=== PATIENT | female | born 1970 | race Caucasian/White ===

== ENCOUNTER 2016-12-09 14:40 | Emergency (ER) | payer BC ==
[2013-03-20 07:23] VITALS: BMI 24.6
[~2016-12-09 14:40] MED LIST: MOTRIN600 MG PO; PERCOCET 10/3251 TA1 PO
[2016-12-09 17:14] LABS: BASOPHILS 0.1 % (0.0-2.0); HEMATOCRIT 42.3 % (36.0-48.0); HEMOGLOBIN 14.7 g/dL (12-16); IMMATURE GRANULOCYTES 0.2 % (0-5); LYMPHOCYTES 19.2 % (15-50); MCH 35.3 pg (26.0-34.0); MCHC 34.8 g/dL (31.0-37.0); MCV 101.4 fL (80.0-100.0); MONOCYTES 5.9 % (2-11); NEUTROPHILS 73.6 % (40-80); PLATELET COUNT 204 10x3/uL (130-400); RBC 4.17 10x6/uL (4.00-5.40); RDW 12.2 % (11.5-14.5); WBC 10.2 10x3/uL (4.8-10.8)
[2016-12-09 17:29] LABS: ALBUMIN 3.8 g/dL (3.4-5.0); ALKALINE PHOSPHATASE 67 U/L (46-116); ALT (SGPT) 51 U/L (10-68); CALC OSMOLALITY 276 mosm/kg (275-300); CALCIUM 8.9 mg/dL (8.5-10.1); CARBON DIOXIDE 26.4 mmol/L (21.0-32.0); CHLORIDE - SERUM 103 mmol/L (98-107); CREATININE - SERUM 0.6 mg/dL (0.6-1.3); GLUCOSE 96 mg/dL (74-106); POTASSIUM - SERUM 3.9 mmol/L (3.5-5.1); PROTEIN - SERUM 7.1 g/dL (6.4-8.2); SODIUM 139 mmol/L (136-145); UREA NITROGEN 9 mg/dL (7-18); eGFR NON AFRICAN AMERICAN > 90 mL/min (90-120)
[2016-12-09 17:40] LABS: CKMB 0.3 U/L (0.0-3.6); CREATINE KINASE 58 UL (21-215); TROPONIN-I < 0.017 ng/mL (0.000-0.060)
== END 2016-12-09 18:15 | disposition home or self-care (01) ==
LOC: D.ER 14:40
PROVIDERS: Family Medicine
DX: M94.0 Chondrocostal junction syndrome [Tietze] (principal)

== ENCOUNTER 2018-06-24 05:30 | Day surgery (SDC) | payer BC ==
[2018-06-21 12:18] LABS: BASOPHILS 0.1 % (0-2); EOSINOPHILS 0.6 % (0-7); HEMATOCRIT 42.3 % (36.0-48.0); HEMOGLOBIN 15.2 g/dL (12-16); IMMATURE GRANULOCYTES 0.1 % (0-5); LYMPHOCYTES 21.9 % (15-50); MCH 34.6 pg (26.0-34.0); MCHC 35.9 g/dL (31.0-37.0); MCV 96.4 fL (80.0-100.0); MEAN PLATELET VOLUME 10.1 fL (7.4-10.4); MONOCYTES 7.1 % (2-11); NEUTROPHILS 70.2 % (40-80); PLATELET COUNT 221 10x3/uL (130-400); RBC 4.39 10x6/uL (4.00-5.40); RDW 12.2 % (11.5-14.5); WBC 8.4 10x3/uL (4.8-10.8)
[~2018-06-24] VITALS: Ht 157.5 cm; Wt 59.0 kg
--- NOTE | ~2018-06-24 | OP ---
PATIENT NAME: DU TURCIOS MEDICAL RECORD: [id number] :70 LOCATION:D.FORMERLY [facility] ADMISSION DATE: SURGEON: ANALI FLETCHER MD DATE OF OPERATION: 06/24/2018 PREOPERATIVE DIAGNOSIS: Pelvic pain. POSTOPERATIVE DIAGNOSES: 1. Pelvic pain. 2. Mild pelvic adhesions. PROCEDURES: 1. Diagnostic laparoscopy. 2. Bilateral salpingo-oophorectomy. SURGEON: Anali Fletcher MD ANESTHESIOLOGIST: Dr. Gregory ANESTHETIC: General. FINDINGS: Right ovary is unremarkable along with the right tube. The uterus is surgically absent. There is a peritoneal inclusion cyst identified on the right sidewall. Left ovary is unremarkable with the exception of adhesions from the bowel to the ovary and the ovary to the sidewall. SPECIMENS REMOVED: Ovaries and tubes bilaterally. SPECIMEN DISPOSITION: Pathology. ESTIMATED BLOOD LOSS: Minimal FLUIDS: 1500 cc of lactated Ringer's. URINE OUTPUT: Minimal. COMPLICATIONS: None. DRAINS: None. INDICATIONS: The patient is a 48-year-old female with pelvic pain. After counseling, the patient has a strong desire for removal due to pain as well as concerns of a cancer in the coming years. The patient was consented for diagnostic laparoscopy and bilateral salpingo-oophorectomy. DESCRIPTION OF PROCEDURE: After informed consent was assured, the patient was taken to the operating room where anesthetic was obtained. Masters catheter was started, and the patient was placed supine on the table and prepped and draped. Incision was made at the umbilicus to accommodate a 5-mm trocar, which was inserted and pneumoperitoneum developed. With the patient in Trendelenburg position, accessory ports were placed in the right lower quadrant and just right of the midline with a 10-12. Through the 10-12 port, a grasper was inserted. The right tube and ovary were elevated and using a coagulation cutter, the infundibulopelvic ligaments compressed, coagulated, and . The dissection was carried out underneath the ovary and tube and then it was placed OPERATIVE REPORT [id number] DU TURCIOS in the cul-de-sac. This was repeated on the contralateral side after taking down the adhesions of the ovary to the bowel and the sidewall with the coagulation cutting device. After the ovary was mobilized, it was elevated with a grasper and the infundibulopelvic ligament was compressed, coagulated, and . The ovary and its tube was now removed from its attachments to the infundibulopelvic ligament and sidewall. An Endobag was now placed in a 10-12 port and both ovaries placed and removed. The pneumoperitoneum was released for 2 minutes and then reestablished. Some bleeding was noted from the right surgical site and it was grasped with a [place] grasper from the midline, elevated and then desiccated with a coagulation device. The accessory ports were removed under direct visualization as the pneumoperitoneum was being released. The primary port was removed after removal of maximum pneumoperitoneum. The skin was reapproximated with subcuticular stitch. A sterile dressing was applied. Sponge, lap, and needle counts were reported correct times 2 at the close of this procedure. The patient will return to same day surgery and after discharge criteria met will be discharged home. TRANSINT:[id number] Voice Confirmation ID: [id number] DOCUMENT ID: [id number] ANALI FLETCHER MD at 1126 CC: [id number] DICTATION DATE: 06/24/18821 INTEGRATION DIRECTOR: 06/24/1852 [facility] 06/24/18 [facility] [address] [place] [address]
[2018-06-24] MEDS ORDERED: ESTRACE1 MG PO (05:51)
[2018-06-24] MEDS ORDERED: ESTRACE 0.0142.5 GM VG (05:52)
[2018-06-24] MEDS ORDERED: HYDROCODON-ACE1 EAC7 PO (05:53)
[2018-06-24 06:07] VITALS: BP 115/74; Ht 157.5 cm; Wt 59.0 kg
== END 2018-06-24 10:04 | disposition home or self-care (01) ==
LOC: D.OPS 05:30 → D.PAN 07:30 → D.OPS 07:30
PROVIDERS: Obstetrics & Gynecology
DX: R10.2 Pelvic and perineal pain (principal); N73.6 Female pelvic peritoneal adhesions (postinfective); L72.0 Epidermal cyst; N94.89 Other specified conditions associated with female genital organs and menstrual cycle; Z01.812 Encounter for preprocedural laboratory examination

== ENCOUNTER → 2018-07-12 16:40 | Outpatient (CLI) | payer BC ==
[2018-06-24 06:07] VITALS: BMI 23.8
[~2018-07-12 16:40] MED LIST changes: +ESTRACE 0.0142.5 GM VG; +ESTRACE1 MG PO; +HYDROCODON-ACE1 EAC7 PO
== END | disposition home or self-care (01) ==
LOC: D.MAMMO 11:30
DX: Z12.31 Encounter for screening mammogram for malignant neoplasm of breast (principal)

== ENCOUNTER → 2019-05-15 12:29 | Outpatient (CLI) | payer BC ==
[2018-06-24 06:07] VITALS: BMI 23.8
[~2019-05-15 12:29] MED LIST changes: +AMITIZA8 MCG PO; +COLACE100 MG PO; +HYDROCODON-ACE1 EA10 PO
== END | disposition home or self-care (01) ==
LOC: D.CT 12:29
PROVIDERS: ATTEND Surgery
DX: R10.32 Left lower quadrant pain (principal); K59.00 Constipation, unspecified

== ENCOUNTER 2019-05-26 15:01 | Observation (INO) | payer BC ==
[~2019-05-26] VITALS: Ht 157.5 cm; Wt 59.0 kg
[~2019-05-26 15:01] MED LIST changes: -AMITIZA8 MCG PO; -COLACE100 MG PO; -HYDROCODON-ACE1 EA10 PO
[2019-05-26 16:05] LABS: BASOPHILS 0.2 % (0-2); EOSINOPHILS 0.4 % (0-7); HEMATOCRIT 43.4 % (36.0-48.0); HEMOGLOBIN 15.9 g/dL (12-16); IMMATURE GRANULOCYTES 0.2 % (0-5); LYMPHOCYTES 23.6 % (15-50); MCH 34.7 pg (26.0-34.0); MCHC 36.6 g/dL (31.0-37.0); MCV 94.8 fL (80.0-100.0); MEAN PLATELET VOLUME 10.5 fL (7.4-10.4); MONOCYTES 4.5 % (2-11); NEUTROPHILS 71.1 % (40-80); PLATELET COUNT 198 10x3/uL (130-400); RBC 4.58 10x6/uL (4.00-5.40); RDW 12.4 % (11.5-14.5); WBC 9.5 10x3/uL (4.8-10.8)
[2019-05-26 16:08] LABS: ALKALINE PHOSPHATASE 59 U/L (46-116); ALT (SGPT) 32 U/L (10-68); BILIRUBIN - TOTAL 0.23 mg/dL (0.2-1.3); CALC OSMOLALITY 273 mosm/kg (275-300); CALCIUM 9.4 mg/dL (8.5-10.1); CARBON DIOXIDE 27.2 mmol/L (21.0-32.0); CHLORIDE - SERUM 103 mmol/L (98-107); CREATININE - SERUM 0.6 mg/dL (0.6-1.3); GLUCOSE 95 mg/dL (74-106); POTASSIUM - SERUM 4.2 mmol/L (3.5-5.1); PROTEIN - SERUM 7.7 g/dL (6.4-8.2); SODIUM 137 mmol/L (136-145); UREA NITROGEN 12 mg/dL (7-18); eGFR NON AFRICAN AMERICAN > 90 mL/min (90-120)
[2019-05-26 17:23] LABS: APPEARANCE CLEAR (CLEAR); BILIRUBIN NEGATIVE (NEGATIVE); COLOR YELLOW (YELLOW); GLUCOSE NEGATIVE (NEGATIVE); KETONE MODERATE mg/dL (NEGATIVE); NITRITE NEGATIVE (NEGATIVE); PROTEIN NEGATIVE (NEGATIVE); UROBILINOGEN NORMAL (NORMAL)
--- NOTE | 2019-05-26 19:20 | NUR ---
REC'D PER W/C FROM ER DEPT TO ROOM 2222 A 49 Y/O W/FE PER SERVICES DR. FISHMAN WITH DX CHOLELITHIASIS. IV PATENT LEFT HAND OF NS AT 100CC'S/HR. SITE CLEAR. ASSESSMENT PER ADMIT PACKET.
[2019-05-26 21:17] VITALS: BP 114/69
[2019-05-26 22:07] VITALS: BP 114/69; BMI 23.8
--- NOTE | 2019-05-26 22:45 | NUR ---
C/O PAIN RT UPPER QUAD OF ABDOMEN. RATES PAIN LEVEL 5-6. MORPHINE 4MG IVPS GIVEN FOR PAIN CONTROL. UP AD SHABBIR TO BR VOIDS WELL.
[2019-05-27 00:17] VITALS: BP 116/70
--- NOTE | 2019-05-27 00:24 | NUR ---
EYES CLOSED RESPIRATIONS WITH EASE AND UNLABORED. PT NPO AT THIS TIME FOR XRAY PROCEDURE IN AM.
[2019-05-27] MEDS ORDERED: AMITIZA8 MCG PO (00:59)
--- NOTE | 2019-05-27 02:00 | NUR ---
REMAINS NPO FOR ULTRA SOUND PROCEDURE AND POSSIBLE SURGERY.
[2019-05-27 04:42] VITALS: BP 108/60
--- NOTE | 2019-05-27 05:34 | NUR ---
EYES CLOSED RESPIRATIONS WITH EASE AND UNLABORED.
--- NOTE | 2019-05-27 08:47 | HP ---
PATIENT: DU TURCIOS MEDICAL RECORD: [id number] ACCOUNT: [id number] LOCATION:D.[facility] : 70 ADMISSION DATE: 05/26/19 PCP: NATALIO FISHMAN HISTORY AND PHYSICAL EXAMINATION DATE OF ADMISSION: 05/26/2019 CHIEF COMPLAINT: Right upper quadrant abdominal pain. HISTORY OF PRESENT ILLNESS: This is a 49-year-old female followed by Dr. Fishman. She has been having abdominal pain for over a month. She has right upper quadrant abdominal pain after she eats, so she has really not eaten much, tried to control her pain by not eating much and then she has abdominal bloating and discomfort and the rest of her abdomen. It has gotten worse over the last month. She was referred to general surgery and was seen earlier this month. Their notes say they were going arrange to get with GI for her colonoscopy as she had one in [address]. [address] CT of the abdomen was ordered and done on 05/15/2019, it showed gallstones and diverticulosis. The patient states she has not heard back with any further recommendations on what to do with that. Pain has been intermittent now, it is getting worse. PAST MEDICAL AND SURGICAL HISTORY: She has had chronic constipation. She had abdominal pain back in 1998 before living in [place]. She had a workup then including a colonoscopy. She had not had any abdominal surgeries prior to that, but she did have a surgery then and was found to have adhesions. These were taken down. Since then, she has had a total abdominal hysterectomy and last year, had a bilateral salpingo-oophorectomy and also had some more lysis of adhesions at that time. ALLERGIES: REPORTED TO ZITHROMAX, CHANTIX, DIFLUCAN, AND ANYTHING WITH COCONUT IN IT. HOME MEDICATIONS: Include Estradiol 1 mg once a day, Amitiza 8 mcg once a day. HABITS: She still smokes some cigarettes. She is a social drinker. Denies any drugs. 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 FAMILY HISTORY: She has no idea about her father's history. Mother, she of reportedly old age. She had dementia and hypertension. The patient's sister has had her gallbladder removed. REVIEW OF SYSTEMS: GENERAL: She states she has lost some weight over the last several months because she is not eating trying to control her pain. HEENT: No particular sinus or allergy problems. RESPIRATORY: She has had some sort of reactive airway disease in the past. CARDIAC: No history of heart trouble. GASTROINTESTINAL: She has had the adhesions years ago and has chronic constipation and the abdominal pain as mentioned above. GENITOURINARY: No significant problems there. She has had a hysterectomy and now bilateral salpingo-oophorectomy. MUSCULOSKELETAL: She has had some chronic pains in her neck and back. HISTORY AND PHYSICAL [id number] DU TURCIOS NEUROLOGIC: No migraine. She has had a few migraine headaches in the past. Denies any seizures. PSYCHIATRIC: No depression or melancholia. PHYSICAL EXAMINATION: VITAL SIGNS: Temperature 97.5, pulse 77, respirations 20, blood pressure 162/70. GENERAL: She is awake and alert. She does not appear in acute distress. Her pain has come and gone. HEENT: Grossly within normal limits. NECK: Supple. No JVD or bruit. HEART: Regular rate and rhythm without murmur. LUNGS: Clear. ABDOMEN: With right upper quadrant tenderness, no guarding, no rebound, no mass at this time. Bowel sounds are active. EXTREMITIES: No edema. NEUROLOGIC: Unremarkable. LABORATORY DATA: Urinalysis is yellow, clear with moderate ketones, otherwise normal. CBC with a white count of 9500, hemoglobin 15.9, hematocrit 43.4. Basic metabolic panel is all normal. Liver functions are normal. Lipase is normal. The patient had a CT of the abdomen and pelvis on 05/15/2019, showing gallstones in the dependent area of the gallbladder. Also, some diverticulosis was noted, otherwise fairly unremarkable. ASSESSMENT: Worsening right upper quadrant abdominal pain, especially after eating. PLAN: We will admit, give IV fluids, pain control. Schedule ultrasound of the gallbladder for her the morning. She will be made n.p.o. after midnight tonight. Pepcid for stress ulcer control. SCDs are ordered. General surgery consult. Other tests or procedures as warranted. TRANSINT:[id number] Voice Confirmation ID: [id number] DOCUMENT ID: [id number] PIERRE KNAPP MD at 0847 CC: [id number] DICTATION DATE: 05/27/1930 FURNACE KEEPER: 05/27/19 0136 ADM IN [facility] [address] [id number]
[2019-05-27 09:08] VITALS: BP 115/66
[2019-05-27 12:17] VITALS: BP 130/82
[2019-05-27 14:45] VITALS: BMI 23.8
[2019-05-27 16:45] VITALS: BP 121/68
[2019-05-27 17:39] VITALS: Ht 157.5 cm; Wt 59.0 kg
[2019-05-27 20:00] VITALS: BP 105/67
--- NOTE | 2019-05-27 20:00 | NUR ---
ASSESSMENT PER FLOWSHEET. IV PATENT LEFT HAND OF NS AT 150CC'S/HR. SITE CLEAR. DISCUSSED WITH PATIENT ABOUT NPO STATUS AFTER MIDNIGHT.
--- NOTE | 2019-05-27 22:13 | NUR ---
AWAKE WATCHING TV DENIES NEEDS.
--- NOTE | 2019-05-28 00:02 | NUR ---
NPO FOR SURGERY IN AM RESTING AT THIS TIME.
[2019-05-28 04:00] VITALS: BP 142/77
--- NOTE | 2019-05-28 05:30 | NUR ---
[facility].
[2019-05-28 06:51] LABS: BASOPHILS 0.3 % (0-2); EOSINOPHILS 1.4 % (0-7); HEMATOCRIT 38.8 % (36.0-48.0); HEMOGLOBIN 13.6 g/dL (12-16); IMMATURE GRANULOCYTES 0.2 % (0-5); LYMPHOCYTES 28.4 % (15-50); MCH 34.1 pg (26.0-34.0); MCHC 35.1 g/dL (31.0-37.0); MEAN PLATELET VOLUME 10.8 fL (7.4-10.4); MONOCYTES 5.8 % (2-11); NEUTROPHILS 63.9 % (40-80); PLATELET COUNT 162 10x3/uL (130-400); RBC 3.99 10x6/uL (4.00-5.40); RDW 12.5 % (11.5-14.5)
--- NOTE | 2019-05-28 06:56 | NUR ---
PRE OP MEDS GIVEN SEE MAR
[2019-05-28 07:12] LABS: MCV 97.2 fL (80.0-100.0); WBC 5.7 10x3/uL (4.8-10.8)
[2019-05-28 07:33] LABS: ALBUMIN 3.1 g/dL (3.4-5.0); ALKALINE PHOSPHATASE 46 U/L (46-116); ALT (SGPT) 33 U/L (10-68); BILIRUBIN - TOTAL 0.28 mg/dL (0.2-1.3); CALC OSMOLALITY 273 mosm/kg (275-300); CALCIUM 8.3 mg/dL (8.5-10.1); CARBON DIOXIDE 22.7 mmol/L (21.0-32.0); CHLORIDE - SERUM 107 mmol/L (98-107); CREATININE - SERUM 0.5 mg/dL (0.6-1.3); GLUCOSE 89 mg/dL (74-106); POTASSIUM - SERUM 3.9 mmol/L (3.5-5.1); PROTEIN - SERUM 6.2 g/dL (6.4-8.2); SODIUM 139 mmol/L (136-145); eGFR NON AFRICAN AMERICAN > 90 mL/min (90-120)
[2019-05-28 07:37] LABS: UREA NITROGEN 4 mg/dL (7-18)
--- NOTE | 2019-05-28 07:47 | NUR ---
PT TO OR AT THIS TIME.
--- NOTE | 2019-05-28 10:35 | OP ---
PATIENT NAME: DU TURCIOS MEDICAL RECORD: [id number] :70 LOCATION:D[facility] ADMISSION DATE:05/26/19 SURGEON: FABIO CERON MD DATE OF OPERATION: 05/28/2019 PREOPERATIVE DIAGNOSES: 1. Ultrasound evidence of gallstones. 2. Ultrasound evidence of fatty liver disease. POSTOPERATIVE DIAGNOSES: 1. Ultrasound evidence of gallstones. 2. Ultrasound evidence of fatty liver disease with hepatomegaly. PROCEDURES: 1. Laparoscopic cholecystectomy. 2. Intraoperative cholangiography without immediate surgeon interpretation. 3. A 14-gauge core needle liver biopsy. SURGEON: Fabio Ceron MD DIE BAKER: None. BLOOD LOSS: Minimal. ANESTHESIA: General. COMPLICATIONS: None. The risks, possible complications, and alternatives to the procedure were explained to the patient. She elects to proceed. The discussion specifically included, but was not limited to, bleeding requiring emergency reoperation, infection, intestinal injury, common bile duct injury. OPERATIVE COURSE: The patient was conveyed to the operating room electively on 05/28/2019. General anesthesia was induced by the anesthesia staff. The abdomen was sterilely prepped and draped. A small skin andrés was accomplished in the left upper quadrant. Veress needle was inserted through the skin andrés into the peritoneal cavity. CO2 insufflation was begun. Once a sufficient pneumoperitoneum had been achieved, a 5-mm trocar was inserted through an incision in the right upper quadrant. Under direct internal vision utilizing a television camera, a 5-mm trocar was inserted through an incision in the left upper quadrant. A 10-mm trocar was inserted through an incision at the umbilicus and another 5-mm trocar was inserted far laterally in the right upper quadrant. During insertion of the Veress needle and all trocars, there appeared to have been no injury to the bowels, any intraperitoneal or retroperitoneal structures. The indication for liver biopsy was hepatomegaly. Under laparoscopic guidance, I percutaneously accessed the right upper quadrant with a core biopsy device. Cores were obtained over the convexity of the liver. The biopsy sites were made hemostatic with electrocautery. I then advanced a cholangiogram trocar. I punctured the fundus of the gallbladder. I aspirated bile. I then injected dye. Under real time fluoroscopy, static fluoroscopic images were obtained and these were OPERATIVE REPORT [id number] DU TUCRIOS cholangiography images that are sent to the radiologist for interpretation. I then aspirated bile and removed the cholangiogram trocar. The gallbladder was grasped and retracted cephalad. The infundibulum was grasped and retracted laterally. Blunt dissection was begun in the triangle of Calot. One cystic artery and one cystic duct were identified. These were clipped multiply and divided between clips. The gallbladder was then excised from its bed in the liver. It was placed within a bag retrieval device and was withdrawn through the umbilical fascia defect. I then reinsufflated the abdomen. I irrigated and aspirated the right upper quadrant. There was no bleeding even at low pressure of 8. The Joseph-David suture closure device and 0 Vicryl sutures were used to close the umbilical fascia defect. All trocars were removed and the abdomen desufflated. The skin incision at the trocar sites were closed with interrupted intracuticular 3-0 Vicryls except at the umbilicus where interrupted 4-0 Vicryl Rapide sutures were used. Benzoin and Steri-Strips were applied. The patient was then extubated and conveyed to the post-anesthesia care unit where she was in a stable condition. She will be dismissed home on hydrocodone as well as Colace. I will see her in my office in 2-3 weeks. TRANSINT:[id number] Voice Confirmation ID: [id number] DOCUMENT ID: [id number] FABIO CERON MD at 1035 CC: NATALIO FISHMAN MD [id number] DICTATION DATE: 05/28/19 0952 NUCLEAR WASTE MANAGEMENT ENGINEER: 05/28/19 1015 ADM IN [place] [id number] [id number]
[2019-05-28 10:38] VITALS: BP 98/70
--- NOTE | 2019-05-28 10:45 | NUR ---
RECEIVED PT BACK TO ROOM 2222 VIA BED, PT A/O X4, RESP EVEN AND NONLABORED ON 3L. PAIN LEVEL OF 7/10, MAINLY PRESSURE. [id number] TO ABD WITH STERISTRIPS. VITAL SIGNS STABLE, HELPED PT TO BATHROOM AND BACK TO BED. NAD NOTED,W ILL CONTINUE TO MONITOR.
[2019-05-28] MEDS ORDERED: HYDROCODON-ACE1 EA10 PO (11:02)
[2019-05-28] MEDS ORDERED: COLACE100 MG PO (11:02)
[2019-05-28 11:13] VITALS: BP 93/64
[2019-05-28 11:30] VITALS: BP 98/64
[2019-05-28 12:02] VITALS: BP 93/64
[2019-05-28 12:19] VITALS: BP 97/66
--- NOTE | 2019-05-28 13:10 | NUR ---
PROVIDED VERBAL AND WRITTEN DISHCARGE TEACHING TO PT AND , BOTH VERBALIZED UNDERSTANDING REGARING TEACHING. ALSO GAVE 4MG OF MORPHINE FOR PAIN LEVEL OF 8/10. D/C RT HAND IV WITH CATHETER TIP INTACT. PT READY FOR WHEELCHAIR.
--- NOTE | 2019-05-28 13:49 | NUR ---
PT LEFT UNIT VIA WHEELCHAIR, WITH ALL BELONGINGS, ACCOMPANIED BY , NAD NOTED.
== END 2019-05-28 13:50 | disposition home or self-care (01) ==
LOC: D.ER 15:01 → D.MS 19:10 → OBSVTIME 19:10 → D.MS 05-28 13:50
PROVIDERS: Emergency Medicine; ADMIT Family Medicine; ATTEND Family Medicine
DX: K80.80 Other cholelithiasis without obstruction (principal); K76.0 Fatty (change of) liver, not elsewhere classified; K59.09 Other constipation; F17.200 Nicotine dependence, unspecified, uncomplicated